=== PATIENT | male | born 1930 | race Caucasian/White ===

== ENCOUNTER 2016-11-24 08:37 | Outpatient (RCR) | payer MEDICARE ==
--- OUTSIDE RECORDS SUMMARY | 2016-09-01 13:08 | XMS REPORT | Continuity of Care Document ---
Author Author [facility] Organization [facility] Address Unknown Phone Unavailable Care Team Providers Care Resource Forester Name Role Phone ANTONIA GUTIERREZ DO PCP Insurance Providers Payer Name Policy Number Subscriber Name Relationship [employer] [id number] Te Galindo 17 Self / Same As Patient [facility] [id number] Te Galindo Self / Same As Patient Problems No problem information available. Medications No medication information available. Social History Social History Problem Response Recorded Date/Time Recent Foreign Travel No 03/09/2016 12:27pm Hospital Discharge Instructions No hospital discharge instructions. Plan of Care Prescriptions See Medication Section Functional Status No functional status results. Allergies, Adverse Reactions, Alerts No known allergies. Immunizations No immunization records. Vital Signs No known vital signs results. Results Laboratory Results Test Name Result Units Flags Reference Collection Date/Time Result Date/ Time Comments White Blood Count 6.5 10^3/uL 4.3-11.0 03/09/2016 12:40pm 03/09/2016 12 :52pm Red Blood Count 4.49 10^6/uL 4.35-5.85 03/09/2016 12:40pm 03/09/2016 12 :52pm Hemoglobin 13.6 G/DL 13.3-17.7 03/09/2016 12:40pm 03/09/2016 12:52pm Hematocrit 40 % 40-54 03/09/2016 12:40pm 03/09/2016 12:52pm Mean Corpuscular Volume 88 FL 80-99 03/09/2016 12:40pm 03/09/2016 12: 52pm Mean Corpuscular Hemoglobin 30 PG 25-34 03/09/2016 12:40pm 03/09/2016 12:52pm Mean Corpuscular Hemoglobin Concent 34 G/DL 32-36 03/09/2016 12:40pm 12:52pm Red Cell Distribution Width 13.0 % 10.0-14.5 03/09/2016 12:40pm 2015 12:52pm Platelet Count 181 10^3/uL 130-400 03/09/2016 12:40pm 03/09/2016 12: 52pm Mean Platelet Volume 10.0 FL 7.4-10.4 03/09/2016 12:40pm 03/09/2016 12: 52pm Neutrophils (%) (Auto) 62 % 42-75 03/09/2016 12:40pm 03/09/2016 12: 52pm Lymphocytes (%) (Auto) 24 % 12-44 03/09/2016 12:40pm 03/09/2016 12: 52pm Monocytes (%) (Auto) 9 % 0-12 03/09/2016 12:40pm 03/09/2016 12:52pm Eosinophils (%) (Auto) 4 % 0-10 03/09/2016 12:40pm 03/09/2016 12:52pm Basophils (%) (Auto) 1 % 0-10 03/09/2016 12:40pm 03/09/2016 12:52pm Neutrophils # (Auto) 4.1 X 10^3 1.8-7.8 03/09/2016 12:40pm 03/09/2016 12:52pm Lymphocytes # (Auto) 1.6 X 10^3 1.0-4.0 03/09/2016 12:40pm 03/09/2016 12:52pm Monocytes # (Auto) 0.6 X 10^3 0.0-1.0 03/09/2016 12:40pm 03/09/2016 12: 52pm Eosinophils # (Auto) 0.2 10^3/uL 0.0-0.3 03/09/2016 12:40pm 03/09/2016 12:52pm Basophils # (Auto) 0.0 10^3/uL 0.0-0.1 03/09/2016 12:40pm 03/09/2016 12 :52pm Sodium Level 140 MMOL/L 135-145 03/09/2016 12:40pm 03/09/2016 1:27pm Potassium Level 4.1 MMOL/L 3.6-5.0 03/09/2016 12:40pm 03/09/2016 1: 27pm Chloride Level 108 MMOL/L H 98-107 03/09/2016 12:40pm 03/09/2016 1:27pm Carbon Dioxide Level 24 MMOL/L 21-32 03/09/2016 12:40pm 03/09/2016 1: 27pm Anion Gap 8 MMOL/L 5-14 03/09/2016 12:40pm 03/09/2016 1:27pm Blood Urea Nitrogen 17 MG/DL 7-18 03/09/2016 12:40pm 03/09/2016 1:27pm Creatinine 0.76 MG/DL 0.60-1.30 03/09/2016 12:40pm 03/09/2016 1:27pm BUN/Creatinine Ratio 22 03/09/2016 12:40pm 03/09/2016 1:27pm Estimat Glomerular Filtration Rate > 60 03/09/2016 12:40pm 2015 1:27pm GFR INTERPRETIVE DATA UNITS FOR ESTIMATED GFR (eGFR): mL/min/1.73 M2 REFERENCE RANGE FOR ESTIMATED GFR (eGFR) eGFR NORMAL eGFR >60 MODERATELY DECREASED eGFR 30-59 SEVERLY DECREASED eGFR 15-29 KIDNEY FAILURE <15 (OR DIALYSIS) Glucose Level 115 MG/DL H 70-105 03/09/2016 12:40pm 03/09/2016 1:27pm Calcium Level 9.1 MG/DL 8.5-10.1 03/09/2016 12:40pm 03/09/2016 1:27pm Total Bilirubin 0.9 MG/DL 0.1-1.0 03/09/2016 12:40pm 03/09/2016 1:27pm Alkaline Phosphatase 83 U/L 40-136 03/09/2016 12:40pm 03/09/2016 1: 27pm Aspartate Amino Transf (AST/SGOT) 25 U/L 5-34 03/09/2016 12:40pm 2015 1:27pm Alanine Aminotransferase (ALT/SGPT) 21 U/L 0-55 03/09/2016 12:40pm 1:27pm Total Protein 6.4 G/DL 6.4-8.2 03/09/2016 12:40pm 03/09/2016 1:27pm Albumin 4.5 G/DL 3.2-4.5 03/09/2016 12:40pm 03/09/2016 1:27pm Thyroid Stimulating Hormone (TSH) 1.09 UIU/ML 0.35-4.94 03/09/2016 12: 40pm 03/09/2016 1:46pm Procedures No known history of procedures. Encounters Encounter Location Arrival/Admit Date Discharge/Depart Date Attending Provider Discharged Recurring [facility] 03/09/16 12:27pm 11:59pm DIMPLE DORMAN MD
[2016-09-01 13:23] LABS: BASOPHILS % (AUTO) 0 % (0-10); EOSINOPHILS # (AUTO) 0.1 10^3/uL (0.0-0.3); EOSINOPHILS % (AUTO) 2 % (0-10); LYMPHOCYTES # (AUTO) 1.6 X 10^3 (1.0-4.0); LYMPHOCYTES % (AUTO) 23 % (12-44); MEAN CORPUSCULAR HEMOGLOBIN 29 PG (25-34); MEAN CORPUSCULAR HGB CONC 33 G/DL (32-36); MEAN CORPUSCULAR VOLUME 88 FL (80-99); MEAN PLATELET VOLUME 9.7 FL (7.4-10.4); MONOCYTES # (AUTO) 0.7 X 10^3 (0.0-1.0); MONOCYTES % (AUTO) 10 % (0-12); NEUTROPHILS # (AUTO) 4.5 X 10^3 (1.8-7.8); NEUTROPHILS % (AUTO) 65 % (42-75); PLATELET COUNT 192 10^3/uL (130-400); RED CELL DISTRIBUTION WIDTH 12.7 % (10.0-14.5); WHITE BLOOD COUNT 6.9 10^3/uL (4.3-11.0)
[2016-09-01 13:49] LABS: ALANINE AMINOTRANSFERASE 21 U/L (0-55); ALBUMIN 4.3 G/DL (3.2-4.5); ANION GAP 9 MMOL/L (5-14); ASPARTATE AMINO TRANSFERASE 22 U/L (5-34); BILIRUBIN,TOTAL 0.4 MG/DL (0.1-1.0); BLOOD UREA NITROGEN 15 MG/DL (7-18); BUN/CREATININE RATIO 15; CALCIUM 9.2 MG/DL (8.5-10.1); CARBON DIOXIDE 25 MMOL/L (21-32); CHLORIDE 108 MMOL/L (98-107); CREATININE SERUM 0.98 MG/DL (0.60-1.30); GFR ESTIMATED > 60; GLUCOSE 127 MG/DL (70-105); POTASSIUM 4.4 MMOL/L (3.6-5.0); SODIUM 142 MMOL/L (135-145); TOTAL PROTEIN 6.1 G/DL (6.4-8.2)
[~2016-11-24 08:37] MED LIST: GOSERELIN (ZOLADEX) 10.8 MG SYR SQ PRN
[2016-11-24] MEDS ORDERED: NS IV SCH (08:56)
[2016-11-24] MEDS ORDERED: ZOLEDRONIC ACID IV SCH (08:56)
[2016-11-24 09:07] LABS: BASOPHILS % (AUTO) 0 % (0-10); EOSINOPHILS # (AUTO) 0.2 10^3/uL (0.0-0.3); EOSINOPHILS % (AUTO) 2 % (0-10); LYMPHOCYTES # (AUTO) 1.1 X 10^3 (1.0-4.0); LYMPHOCYTES % (AUTO) 15 % (12-44); MEAN CORPUSCULAR HGB CONC 33 G/DL (32-36); MEAN CORPUSCULAR VOLUME 92 FL (80-99); MEAN PLATELET VOLUME 9.4 FL (7.4-10.4); MONOCYTES # (AUTO) 0.7 X 10^3 (0.0-1.0); MONOCYTES % (AUTO) 10 % (0-12); NEUTROPHILS # (AUTO) 5.3 X 10^3 (1.8-7.8); NEUTROPHILS % (AUTO) 72 % (42-75); PLATELET COUNT 150 10^3/uL (130-400); RED BLOOD COUNT 4.33 10^6/uL (4.35-5.85); WHITE BLOOD COUNT 7.3 10^3/uL (4.3-11.0)
[2016-11-24 09:08] LABS: MEAN CORPUSCULAR HEMOGLOBIN 30 PG (25-34)
[2016-11-24 09:29] LABS: ALANINE AMINOTRANSFERASE 22 U/L (0-55); ALBUMIN 4.2 G/DL (3.2-4.5); ANION GAP 7 MMOL/L (5-14); ASPARTATE AMINO TRANSFERASE 20 U/L (5-34); BILIRUBIN,TOTAL 0.7 MG/DL (0.1-1.0); BLOOD UREA NITROGEN 15 MG/DL (7-18); BUN/CREATININE RATIO 20; CALCIUM 8.9 MG/DL (8.5-10.1); CARBON DIOXIDE 27 MMOL/L (21-32); CHLORIDE 105 MMOL/L (98-107); CREATININE SERUM 0.75 MG/DL (0.60-1.30); GFR ESTIMATED > 60; GLUCOSE 95 MG/DL (70-105); POTASSIUM 4.4 MMOL/L (3.6-5.0); SODIUM 139 MMOL/L (135-145); TOTAL PROTEIN 5.9 G/DL (6.4-8.2)
== END 2016-11-30 | disposition home or self-care (01) ==
LOC: ONC 08:37
PROVIDERS: ATTEND Internal Medicine Hematology & Oncology
DX: C61 Malignant neoplasm of prostate (principal); C79.51 Secondary malignant neoplasm of bone; Z79.899 Other long term (current) drug therapy
CPT/HCPCS: 36415; 80053; 82607; 84153; 84403; 85025; 96365; 96402; 99213

== ENCOUNTER 2017-02-22 08:52 | Outpatient (RCR) | payer MEDICARE ==
[2017-02-22 08:51] LABS: BASOPHILS % (AUTO) 0 % (0-10); EOSINOPHILS # (AUTO) 0.2 10^3/uL (0.0-0.3); EOSINOPHILS % (AUTO) 2 % (0-10); LYMPHOCYTES # (AUTO) 1.3 X 10^3 (1.0-4.0); LYMPHOCYTES % (AUTO) 16 % (12-44); MEAN CORPUSCULAR HEMOGLOBIN 30 PG (25-34); MEAN CORPUSCULAR HGB CONC 34 G/DL (32-36); MEAN CORPUSCULAR VOLUME 90 FL (80-99); MEAN PLATELET VOLUME 9.9 FL (7.4-10.4); MONOCYTES # (AUTO) 0.9 X 10^3 (0.0-1.0); MONOCYTES % (AUTO) 10 % (0-12); NEUTROPHILS # (AUTO) 5.9 X 10^3 (1.8-7.8); NEUTROPHILS % (AUTO) 71 % (42-75); PLATELET COUNT 177 10^3/uL (130-400); RED BLOOD COUNT 4.38 10^6/uL (4.35-5.85); RED CELL DISTRIBUTION WIDTH 12.8 % (10.0-14.5); WHITE BLOOD COUNT 8.2 10^3/uL (4.3-11.0)
[~2017-02-22 08:52] MED LIST changes: +NS IV SCH; +ZOLEDRONIC ACID IV SCH
[2017-02-22 09:16] LABS: ALANINE AMINOTRANSFERASE 22 U/L (0-55); ALBUMIN 4.4 G/DL (3.2-4.5); ANION GAP 10 MMOL/L (5-14); ASPARTATE AMINO TRANSFERASE 23 U/L (5-34); BILIRUBIN,TOTAL 0.9 MG/DL (0.1-1.0); BLOOD UREA NITROGEN 15 MG/DL (7-18); BUN/CREATININE RATIO 19; CALCIUM 9.4 MG/DL (8.5-10.1); CARBON DIOXIDE 28 MMOL/L (21-32); CHLORIDE 107 MMOL/L (98-107); CREATININE SERUM 0.79 MG/DL (0.60-1.30); GFR ESTIMATED > 60; GLUCOSE 93 MG/DL (70-105); SODIUM 145 MMOL/L (135-145); TOTAL PROTEIN 6.2 G/DL (6.4-8.2)
[2017-02-22 09:37] LABS: THYROID STIMULATING HORMONE 1.88 UIU/ML (0.35-4.94)
== END 2017-05-16 11:03 | disposition home or self-care (01) ==
LOC: ONC 08:52
PROVIDERS: ATTEND Internal Medicine Hematology & Oncology
DX: C61 Malignant neoplasm of prostate (principal); C79.51 Secondary malignant neoplasm of bone; Z79.899 Other long term (current) drug therapy
CPT/HCPCS: 80053; 84153; 84443; 85025; 96402; 99213

== ENCOUNTER 2017-05-17 09:02 | Outpatient (RCR) | payer MEDICARE ==
[2017-05-17 09:21] LABS: BASOPHILS % (AUTO) 0 % (0-10); EOSINOPHILS # (AUTO) 0.1 10^3/uL (0.0-0.3); EOSINOPHILS % (AUTO) 2 % (0-10); LYMPHOCYTES # (AUTO) 1.4 X 10^3 (1.0-4.0); LYMPHOCYTES % (AUTO) 20 % (12-44); MEAN CORPUSCULAR HGB CONC 34 G/DL (32-36); MEAN CORPUSCULAR VOLUME 90 FL (80-99); MEAN PLATELET VOLUME 9.6 FL (7.4-10.4); MONOCYTES # (AUTO) 0.6 X 10^3 (0.0-1.0); MONOCYTES % (AUTO) 9 % (0-12); NEUTROPHILS # (AUTO) 4.7 X 10^3 (1.8-7.8); NEUTROPHILS % (AUTO) 69 % (42-75); PLATELET COUNT 180 10^3/uL (130-400); WHITE BLOOD COUNT 6.8 10^3/uL (4.3-11.0)
[2017-05-17 09:22] LABS: MEAN CORPUSCULAR HEMOGLOBIN 30 PG (25-34)
[2017-05-17 09:48] LABS: ALANINE AMINOTRANSFERASE 21 U/L (0-55); ANION GAP 9 MMOL/L (5-14); ASPARTATE AMINO TRANSFERASE 19 U/L (5-34); BILIRUBIN,TOTAL 0.8 MG/DL (0.1-1.0); BLOOD UREA NITROGEN 17 MG/DL (7-18); BUN/CREATININE RATIO 23; CALCIUM 8.8 MG/DL (8.5-10.1); CARBON DIOXIDE 25 MMOL/L (21-32); CHLORIDE 106 MMOL/L (98-107); CREATININE SERUM 0.75 MG/DL (0.60-1.30); GFR ESTIMATED > 60; GLUCOSE 125 MG/DL (70-105); SODIUM 140 MMOL/L (135-145); TOTAL PROTEIN 5.7 GM/DL (6.4-8.2)
== END 2017-07-15 | disposition home or self-care (01) ==
LOC: ONC 09:02
PROVIDERS: ATTEND Internal Medicine Hematology & Oncology
DX: C61 Malignant neoplasm of prostate (principal); C79.51 Secondary malignant neoplasm of bone; Z79.899 Other long term (current) drug therapy
CPT/HCPCS: 36415; 80053; 84153; 85025; 96365; 96402